=== PATIENT | female | born 1955 | race Caucasian/White ===

== ENCOUNTER 2016-09-12 09:12 | Emergency (ER) | payer OTHER ==
[~2016-09-12] VITALS: Ht 157.5 cm; Wt 51.7 kg
[2016-09-12 09:58] LABS: HEMATOCRIT 40.6 % (36.0-46.0); MCHC 34.2 G/DL (30.0-36.0); MCV 81.9 FL (83-99); RBC DIS.WIDTH-CV 12.7 % (11.8-14.6); RBC DIS.WIDTH-SD 38.1 % (39-53); RED BLOOD COUNT 4.96 M/uL (3.80-5.20); WHITE BLOOD COUNT 4.8 K/uL (4.1-10.2)
[2016-09-12 10:08] LABS: CHLORIDE 98 mEq/L (99-109); POTASSIUM 3.8 mEq/L (3.7-5.4); SODIUM 128 mEq/L (136-147)
[2016-09-12 10:10] LABS: GLUCOSE 146 mg/dL (70-99)
[2016-09-12 10:11] LABS: ANION GAP 11 MEQ/L (2-14)
[2016-09-12 10:12] LABS: TOTAL BILIRUBIN 0.5 mg/dL (0.0-1.0)
[2016-09-12 10:13] LABS: ALKALINE PHOSPHATASE 65 IU/L (3-129)
[2016-09-12 10:14] LABS: GFR ESTIMATE (CALCULATED) > 59 mL/min/
[2016-09-12 10:15] LABS: UREA NITROGEN (BUN) 9 mg/dL (9-23)
[2016-09-12 10:54] LABS: ADD MIUA? YES; BILIRUBIN NEGATIVE; BLOOD SMALL; COLOR COLORLESS ((YELLOW)); GLUCOSE (STRIP) NEGATIVE; KETONES 5; LEUKOCYTES NEGATIVE; NITRITE NEGATIVE; PROTEIN (STRIP) NEGATIVE; SPECIFIC GRAVITY 1.003 (1.000-1.030); UROBILINOGEN 0.2 MG/DL (0.2-1.0)
[2016-09-12 10:55] LABS: AMPHETAMINE NEGATIVE (500 ng/mL); BARBITURATES NEGATIVE (200 ng/mL); BENZODIAZEPINES PRESUMPTIVE POSITIVE (150 ng/mL); COCAINE NEGATIVE (150 ng/mL); INTERNAL CONTROLS VALID? YES; METHADONE NEGATIVE (200 ng/mL); METHAMPHETAMINE NEGATIVE (500 ng/mL); OPIATES (MORPHINE) NEGATIVE (100 ng/mL); OXYCODONE NEGATIVE (100 ng/mL); PHENCYCLIDINE NEGATIVE (25 ng/mL); PROPOXYPHENE NEGATIVE (300 ng/mL); THC CANNABINOIDS NEGATIVE (50 ng/mL); TRICYCLIC ANTIDEPRESSANTS NEGATIVE (300 ng/mL)
[2016-09-12 10:56] LABS: ADD MEDTOX COMMENT Y
[2016-09-12 11:14] LABS: MEAN PLAT.VOLUME 9.9 uM^3 (9.5-12.4); PLATELET COUNT 219 K/uL (156-360)
[2016-09-12 11:33] LABS: BACTERIA NONE SEEN /HPF; EPITHELIAL CELLS RARE /HPF; MUCUS TRACE /LPF; RED BLOOD CELLS NONE SEEN /HPF (0-5); UCUL ADDED? NO; WHITE BLOOD CELLS 0-5 /HPF (0-5)
[2016-09-12] MEDS ORDERED: TRAZODONE HCL50 MG PO (11:37)
[2016-09-12 11:40] LABS: BENZODIAZEPINES QUANT VALUE 0 NG/ML
[2016-09-12 11:44] LABS: BENZODIAZEPINES, URINE SCREEN Negative (200 ng/mL)
[2016-09-12 12:05] VITALS: BP 142/86
[2016-09-13] MEDS ORDERED: CELEXA40 MG PO (12:53)
[2016-09-13] MEDS ORDERED: METHOCARBAMOL500 MG PO (12:54)
[2016-09-13] MEDS ORDERED: DESOWEN60 GM TP (14:05)
[2016-09-13] MEDS ORDERED: TRAZODONE HCL50 MG PO (14:05)
[2016-09-13] MEDS ORDERED: FLONASE ALLERG9.9 ML BOTH NARES (14:05)
[2016-09-13] MEDS ORDERED: TEMOVATE 0.05%30 GM TP (14:06)
== END 2016-09-12 12:07 | disposition home or self-care (01) ==
LOC: EME 09:12
PROVIDERS: Emergency Medicine
DX: F41.1 Generalized anxiety disorder (principal); F32.9 Major depressive disorder, single episode, unspecified; Z91.19 Patient's noncompliance with other medical treatment and regimen; F10.10 Alcohol abuse, uncomplicated; F19.10 Other psychoactive substance abuse, uncomplicated; G35 Multiple sclerosis; F17.200 Nicotine dependence, unspecified, uncomplicated; M35.00 Sjogren syndrome, unspecified
CPT/HCPCS: 80053; 81003; 84999; 85027; 90839; 99281; 99284

== ENCOUNTER 2016-09-13 08:51 | Inpatient (IN) | payer OTHER ==
[~2016-09-13] VITALS: Ht 154.9 cm; Wt 50.1 kg
[~2016-09-13 08:51] MED LIST: TRAZODONE HCL50 MG PO
[2016-09-13 10:08] LABS: ADD MEDTOX COMMENT Y; AMPHETAMINE NEGATIVE (500 ng/mL); BARBITURATES NEGATIVE (200 ng/mL); BENZODIAZEPINES PRESUMPTIVE POSITIVE (150 ng/mL); COCAINE NEGATIVE (150 ng/mL); INTERNAL CONTROLS VALID? YES; METHADONE NEGATIVE (200 ng/mL); METHAMPHETAMINE NEGATIVE (500 ng/mL); OPIATES (MORPHINE) NEGATIVE (100 ng/mL); OXYCODONE NEGATIVE (100 ng/mL); PHENCYCLIDINE NEGATIVE (25 ng/mL); PROPOXYPHENE NEGATIVE (300 ng/mL); THC CANNABINOIDS NEGATIVE (50 ng/mL); TRICYCLIC ANTIDEPRESSANTS NEGATIVE (300 ng/mL)
[2016-09-13 10:37] LABS: BENZODIAZEPINES QUANT VALUE 0 NG/ML
[2016-09-13 10:38] LABS: BENZODIAZEPINES, URINE SCREEN Negative (200 ng/mL)
[2016-09-13] MEDS ORDERED: CELEXA40 MG PO (12:53)
[2016-09-13] MEDS ORDERED: METHOCARBAMOL500 MG PO (12:54)
[2016-09-13] MEDS ORDERED: DESOWEN60 GM TP (14:05)
[2016-09-13] MEDS ORDERED: TRAZODONE HCL50 MG PO (14:05)
[2016-09-13] MEDS ORDERED: FLONASE ALLERG9.9 ML BOTH NARES (14:05)
[2016-09-13] MEDS ORDERED: TEMOVATE 0.05%30 GM TP (14:06)
[2016-09-13 14:11] VITALS: BP 138/92
[2016-09-13 14:18] VITALS: BP 138/92
[2016-09-14 08:01] VITALS: BP 127/91
[2016-09-14 15:36] VITALS: BP 169/92
[2016-09-15 07:59] VITALS: BP 105/64
[2016-09-15 16:19] VITALS: BP 170/94
[2016-09-15 19:36] VITALS: BP 137/95
[2016-09-16 08:09] VITALS: BP 114/77
[2016-09-16 15:31] VITALS: BP 171/89
[2016-09-16 18:16] VITALS: BP 141/77
[2016-09-17 08:26] VITALS: BP 149/73
[2016-09-17 15:25] VITALS: BP 153/98
[2016-09-18] MEDS ORDERED: DESYREL 150 MG150 MG PO (09:31)
[2016-09-18] MEDS ORDERED: METHOCARBAMOL500 MG PO (09:31)
[2016-09-18] MEDS ORDERED: CITALOPRAM HBR20 MG PO (09:31)
[2016-09-18 09:36] VITALS: BP 137/84
== END 2016-09-18 13:09 | disposition home or self-care (01) | DRG 881 ==
LOC: EME 08:51 → 1WEST 11:06 → EDOF 11:06 → 1WEST 14:04
PROVIDERS: Emergency Medicine
DX: F32.9 Major depressive disorder, single episode, unspecified (principal); R45.851 Suicidal ideations; F19.20 Other psychoactive substance dependence, uncomplicated; F17.200 Nicotine dependence, unspecified, uncomplicated; M32.9 Systemic lupus erythematosus, unspecified; F41.1 Generalized anxiety disorder; F43.10 Post-traumatic stress disorder, unspecified; M35.00 Sjogren syndrome, unspecified; F13.980 Sedative, hypnotic or anxiolytic use, unspecified with sedative, hypnotic or anxiolytic-induced anxiety disorder; F10.20 Alcohol dependence, uncomplicated
CPT/HCPCS: 84999; 90839; 97150 GO; 97166 GO; 99281; 99285; G0480; Q0177

== ENCOUNTER 2016-10-15 14:10 | Emergency (ER) | payer OTHER ==
[~2016-10-15] VITALS: Ht 157.5 cm; Wt 51.3 kg
[~2016-10-15 14:10] MED LIST changes: +CELEXA40 MG PO; +CITALOPRAM HBR20 MG PO; +DESOWEN60 GM TP; +DESYREL 150 MG150 MG PO; +FLONASE ALLERG9.9 ML BOTH NARES; +METHOCARBAMOL500 MG PO; +TEMOVATE 0.05%30 GM TP
[2016-10-15] MEDS ORDERED: DESONIDE15 GM TP (14:29)
[2016-10-15] MEDS ORDERED: VALIUM5 MG PO (16:24)
[2016-10-15 16:43] VITALS: BP 1341/83
== END 2016-10-15 16:47 | disposition home or self-care (01) ==
LOC: EME 14:10
DX: M62.830 Muscle spasm of back (principal); G35 Multiple sclerosis; M32.9 Systemic lupus erythematosus, unspecified; F41.9 Anxiety disorder, unspecified; F17.200 Nicotine dependence, unspecified, uncomplicated; Z88.1 Allergy status to other antibiotic agents
CPT/HCPCS: 99281; 99284

== ENCOUNTER 2016-12-15 13:05 | Emergency (ER) | payer OTHER ==
[~2016-12-15] VITALS: Ht 154.9 cm; Wt 58.3 kg
[~2016-12-15 13:05] MED LIST changes: +DESONIDE15 GM TP; +VALIUM5 MG PO
[2016-12-15 14:19] LABS: HEMATOCRIT 41.7 % (36.0-46.0); MCH 28.3 PG (29.0-34.0); MCHC 34.8 G/DL (30.0-36.0); MCV 81.3 FL (83-99); PLATELET COUNT 230 K/uL (156-360); RBC DIS.WIDTH-CV 12.7 % (11.8-14.6); RBC DIS.WIDTH-SD 37.9 % (39-53); RED BLOOD COUNT 5.13 M/uL (3.80-5.20); WHITE BLOOD COUNT 6.3 K/uL (4.1-10.2)
[2016-12-15 14:29] LABS: CHLORIDE 102 mEq/L (99-109); POTASSIUM 3.6 mEq/L (3.7-5.4); SODIUM 134 mEq/L (136-147)
[2016-12-15 14:31] LABS: GLUCOSE 98 mg/dL (70-99)
[2016-12-15 14:32] LABS: ANION GAP 11 MEQ/L (2-14)
[2016-12-15 14:35] LABS: GFR ESTIMATE (CALCULATED) > 59 mL/min/; UREA NITROGEN (BUN) 13 mg/dL (9-23)
[2016-12-15 14:40] LABS: TROP-I INTERPRETATION NEGATIVE; TROPONIN-I < 0.01 ng/mL (0.0-0.30)
[2016-12-15 15:53] LABS: TROP-I INTERPRETATION NEGATIVE; TROPONIN-I < 0.01 ng/mL (0.0-0.30)
[2016-12-15 16:00] VITALS: BP 160/116
== END 2016-12-15 16:50 | disposition home or self-care (01) ==
LOC: EME 13:05
PROVIDERS: Emergency Medicine
DX: R55 Syncope and collapse (principal); R07.9 Chest pain, unspecified; E86.0 Dehydration; M32.9 Systemic lupus erythematosus, unspecified; Z86.718 Personal history of other venous thrombosis and embolism; F17.200 Nicotine dependence, unspecified, uncomplicated
CPT/HCPCS: 71020; 80048; 84484; 85027; 93005; 99281; 99285; J2060; J7030

== ENCOUNTER 2017-02-13 13:20 | Emergency (ER) | payer OTHER ==
[~2017-02-13] VITALS: Ht 160 cm; Wt 50.0 kg
[2017-02-13] MEDS ORDERED: LIDODERM 5% P1 PATCH TD (16:06)
[2017-02-13 16:22] VITALS: BP 165/96
== END 2017-02-13 16:22 | disposition home or self-care (01) ==
LOC: EME 13:20
DX: M62.838 Other muscle spasm (principal); M54.2 Cervicalgia; Z88.1 Allergy status to other antibiotic agents; Z88.6 Allergy status to analgesic agent
CPT/HCPCS: 99281; 99283; J1885; J3360

== ENCOUNTER 2017-10-09 03:48 | Emergency (ER) | payer OTHER ==
[~2017-10-09] VITALS: Ht 157.5 cm; Wt 46.6 kg
[~2017-10-09 03:48] MED LIST changes: +LIDODERM 5% P1 PATCH TD
[2017-10-09 06:26] LABS: HEMATOCRIT 42.4 % (36.0-46.0); HEMOGLOBIN 14.8 G/DL (11.9-15.5); MCH 28.5 PG (29.0-34.0); MCHC 34.9 G/DL (30.0-36.0); MCV 81.7 FL (83-99); RBC DIS.WIDTH-CV 13.4 % (11.8-14.6); RBC DIS.WIDTH-SD 39.7 % (39-53); RED BLOOD COUNT 5.19 M/uL (3.80-5.20); WHITE BLOOD COUNT 4.3 K/uL (4.1-10.2)
[2017-10-09 06:34] LABS: CHLORIDE 104 mEq/L (99-109); POTASSIUM 3.9 mEq/L (3.7-5.4); SODIUM 138 mEq/L (136-147)
[2017-10-09 06:36] LABS: GLUCOSE 118 mg/dL (70-99)
[2017-10-09 06:40] LABS: CREATININE 0.7 mg/dL (0.6-1.3); GFR ESTIMATE (CALCULATED) > 59 mL/min/
[2017-10-09 06:41] LABS: UREA NITROGEN (BUN) 7 mg/dL (9-23)
[2017-10-09 06:47] LABS: TROP-I INTERPRETATION NEGATIVE; TROPONIN-I < 0.01 ng/mL (0.0-0.30)
[2017-10-09] MEDS ORDERED: VALIUM5 MG PO (08:03)
[2017-10-09] MEDS ORDERED: MEDROL DOSEPAK4 MG PO (08:03)
[2017-10-09] MEDS ORDERED: NAPROSYN500 MG PO (08:03)
[2017-10-09 08:30] VITALS: BP 135/94
[2017-10-09 10:19] LABS: PLAT.SUFFICIENCY ADEQUATE; PLATELET COUNT 236 K/uL (156-360)
== END 2017-10-09 08:58 | disposition home or self-care (01) ==
LOC: EME 03:48
PROVIDERS: Emergency Medicine
DX: M54.6 Pain in thoracic spine (principal); M79.604 Pain in right leg; M79.605 Pain in left leg; M32.9 Systemic lupus erythematosus, unspecified; Z86.718 Personal history of other venous thrombosis and embolism; F17.200 Nicotine dependence, unspecified, uncomplicated
CPT/HCPCS: 80048; 84484; 85027; 93005; 99281; 99285

== ENCOUNTER 2017-10-16 22:57 | Emergency (ER) | payer OTHER ==
[~2017-10-16] VITALS: Ht 157.5 cm; Wt 47.5 kg
[~2017-10-16 22:57] MED LIST changes: +MEDROL DOSEPAK4 MG PO; +NAPROSYN500 MG PO
[2017-10-16 23:50] LABS: HEMATOCRIT 38.5 % (36.0-46.0); HEMOGLOBIN 13.6 G/DL (11.9-15.5); MCH 29.1 PG (29.0-34.0); MCHC 35.3 G/DL (30.0-36.0); MCV 82.3 FL (83-99); PLATELET COUNT 244 K/uL (156-360); RBC DIS.WIDTH-CV 13.5 % (11.8-14.6); RBC DIS.WIDTH-SD 40.2 % (39-53); RED BLOOD COUNT 4.68 M/uL (3.80-5.20); WHITE BLOOD COUNT 6.2 K/uL (4.1-10.2)
[2017-10-17 00:01] LABS: CHLORIDE 102 mEq/L (99-109); POTASSIUM 3.7 mEq/L (3.7-5.4); SODIUM 134 mEq/L (136-147)
[2017-10-17 00:03] LABS: GLUCOSE 97 mg/dL (70-99)
[2017-10-17 00:06] LABS: SERUM ETHYL ALCOHOL < 10 mg/dL
[2017-10-17 00:07] LABS: CREATININE 0.7 mg/dL (0.6-1.3); GFR ESTIMATE (CALCULATED) > 59 mL/min/
[2017-10-17 00:08] LABS: UREA NITROGEN (BUN) 14 mg/dL (9-23)
[2017-10-17 01:29] LABS: AMPHETAMINE NEGATIVE (500 ng/mL); BARBITURATES NEGATIVE (200 ng/mL); BENZODIAZEPINES NEGATIVE (150 ng/mL); BUPRENORPHINE NEGATIVE (10 ng/mL); COCAINE NEGATIVE (150 ng/mL); METHADONE NEGATIVE (200 ng/mL); METHAMPHETAMINE NEGATIVE (500 ng/mL); OPIATES (MORPHINE) NEGATIVE (100 ng/mL); OXYCODONE NEGATIVE (100 ng/mL); PHENCYCLIDINE NEGATIVE (25 ng/mL); PROPOXYPHENE NEGATIVE (300 ng/mL); THC CANNABINOIDS NEGATIVE (50 ng/mL); TRICYCLIC ANTIDEPRESSANTS NEGATIVE (300 ng/mL)
[2017-10-17] MEDS ORDERED: AMBIEN10 MG PO (01:45)
[2017-10-17 01:58] LABS: TROP-I INTERPRETATION NEGATIVE; TROPONIN-I < 0.01 ng/mL (0.0-0.30)
[2017-10-17 02:36] VITALS: BP 111/74
== END 2017-10-17 02:47 | disposition home or self-care (01) ==
LOC: EME 22:57
PROVIDERS: Emergency Medicine Emergency Medical Services
DX: F32.9 Major depressive disorder, single episode, unspecified (principal); R07.9 Chest pain, unspecified; G47.00 Insomnia, unspecified; F41.9 Anxiety disorder, unspecified; G35 Multiple sclerosis; M32.9 Systemic lupus erythematosus, unspecified; M35.00 Sjogren syndrome, unspecified; F17.200 Nicotine dependence, unspecified, uncomplicated; Z88.1 Allergy status to other antibiotic agents; Z88.8 Allergy status to other drugs, medicaments and biological substances
CPT/HCPCS: 80048; 84484; 85027; 90839; 93005; 99281; 99285; G0480

== ENCOUNTER 2017-10-19 08:06 | Emergency (ER) | payer OTHER ==
[~2017-10-19] VITALS: Ht 157.5 cm; Wt 48.1 kg
[~2017-10-19 08:06] MED LIST changes: +AMBIEN10 MG PO
[2017-10-19 08:44] LABS: APPEARANCE SL.HAZY ((CLEAR)); BILIRUBIN NEGATIVE; BLOOD NEGATIVE; COLOR YELLOW ((YELLOW)); GLUCOSE (STRIP) NEGATIVE; KETONES NEGATIVE; LEUKOCYTES TRACE; NITRITE NEGATIVE; PROTEIN (STRIP) NEGATIVE; SPECIFIC GRAVITY 1.012 (1.000-1.030); UROBILINOGEN 0.2 MG/DL (0.2-1.0)
[2017-10-19 08:47] LABS: BACTERIA RARE /HPF; EPITHELIAL CELLS 2+ /HPF; MUCUS TRACE /LPF; RED BLOOD CELLS 0-5 /HPF (0-5)
[2017-10-19 08:50] LABS: HEMATOCRIT 40.1 % (36.0-46.0); MCH 29.4 PG (29.0-34.0); MCHC 34.9 G/DL (30.0-36.0); MCV 84.2 FL (83-99); PLATELET COUNT 264 K/uL (156-360); RBC DIS.WIDTH-CV 14.1 % (11.8-14.6); RBC DIS.WIDTH-SD 43.5 % (39-53); RED BLOOD COUNT 4.76 M/uL (3.80-5.20); WHITE BLOOD COUNT 8.9 K/uL (4.1-10.2)
[2017-10-19 08:58] LABS: CHLORIDE 107 mEq/L (99-109); POTASSIUM 4.3 mEq/L (3.7-5.4); SODIUM 140 mEq/L (136-147)
[2017-10-19 08:59] LABS: AMPHETAMINE NEGATIVE (500 ng/mL); BARBITURATES NEGATIVE (200 ng/mL); BENZODIAZEPINES NEGATIVE (150 ng/mL); BUPRENORPHINE NEGATIVE (10 ng/mL); COCAINE NEGATIVE (150 ng/mL); METHADONE NEGATIVE (200 ng/mL); METHAMPHETAMINE NEGATIVE (500 ng/mL); OPIATES (MORPHINE) NEGATIVE (100 ng/mL); OXYCODONE NEGATIVE (100 ng/mL); PHENCYCLIDINE NEGATIVE (25 ng/mL); PROPOXYPHENE NEGATIVE (300 ng/mL); THC CANNABINOIDS NEGATIVE (50 ng/mL); TRICYCLIC ANTIDEPRESSANTS NEGATIVE (300 ng/mL)
[2017-10-19 09:00] LABS: GLUCOSE 124 mg/dL (70-99)
[2017-10-19 09:04] LABS: CREATININE 0.7 mg/dL (0.6-1.3); GFR ESTIMATE (CALCULATED) > 59 mL/min/
[2017-10-19 09:05] LABS: UREA NITROGEN (BUN) 22 mg/dL (9-23)
[2017-10-19 12:05] VITALS: BP 160/98
== END 2017-10-19 12:06 | disposition home or self-care (01) ==
LOC: EME 08:06
PROVIDERS: Nurse Practitioner Family
DX: F41.1 Generalized anxiety disorder (principal); F32.9 Major depressive disorder, single episode, unspecified; F43.10 Post-traumatic stress disorder, unspecified; G35 Multiple sclerosis; M32.9 Systemic lupus erythematosus, unspecified; M35.00 Sjogren syndrome, unspecified; F17.200 Nicotine dependence, unspecified, uncomplicated; Z88.1 Allergy status to other antibiotic agents; Z88.8 Allergy status to other drugs, medicaments and biological substances
CPT/HCPCS: 80048; 81003; 85027; 90839; 99281; 99283